=== PATIENT | male | born 1975 | race Caucasian/White ===

== ENCOUNTER 2016-10-28 12:05 | Emergency (ER) | payer BC ==
[~2016-10-28 12:05] MED LIST: COLCH6 PO; IBU800 PO; P10 PO; PERCOCET1 TA5 PO; Z300 PO
[2016-10-28 12:53] LABS: BASOPHILS 1.1 %; BASOPHILS ABSOLUTE 0.09 10/3/uL (0.0-0.16); EOSINOPHILS 6.1 %; EOSINOPHILS ABSOLUTE 0.51 10/3/uL (0.0-0.53); ER CBC TAT 0 Hrs 05 Mins; HEMOGLOBIN 16.8 g/dL (13.6-17.8); IMMATURE GRANULOCYTES 0.5 %; IMMATURE GRANULOCYTES ABSOLUTE 0.04 10/3/uL (0.0-0.11); LYMPHOCYTES ABSOLUTE 2.26 10/3/uL (0.67-4.30); MEAN CORPUS HGB CONC 34.3 g/dL (32.0-36.0); MEAN CORPUSCULAR HEMOGLOB 29.5 pg (26.0-34.0); MEAN PLATELET VOLUME 10.9 fL (9.2-13.0); MONOCYTES 8.1 %; MONOCYTES ABSOLUTE 0.68 10/3/uL (0.21-1.20); NEUTROPHILS 57.2 %; PLATELET COUNT 226 10/3/uL (150-400); RBC DISTRIBUTION WIDTH 13.4 % (12.0-16.0); WHITE BLOOD CELLS 8.4 10/3/uL (4.5-10.5)
[2016-10-28 12:54] LABS: MANUAL DIFF NO %
[2016-10-28 13:07] LABS: BUN (BLOOD UREA NITROGEN) 14 MG/DL (6-23); CHLORIDE, SERUM 108 MMOL/L (96-112); CO2 (CARBON DIOXIDE) 22 MMOL/L (24-34); CREATININE 1.27 MG/DL (0.70-1.30); GFR AFRICAN AMERICAN 81 ML/MIN (>=60); GFR NON AFRICAN AMERICAN 70 ML/MIN (>=60); GLUCOSE, SERUM 101 MG/DL (60-99); POTASSIUM, SERUM 4.1 MMOL/L (3.5-5.3); SODIUM, SERUM 140 MMOL/L (135-148)
== END 2016-10-28 16:44 | disposition home or self-care (01) ==
LOC: ER 12:05
PROVIDERS: Nurse Practitioner Acute Care
DX: M79.671 Pain in right foot (principal); G89.29 Other chronic pain; Z88.0 Allergy status to penicillin; Z79.52 Long term (current) use of systemic steroids
CPT/HCPCS: 73630-RT; 80048; 85025; 99283; A9270-GY